=== PATIENT | male | born 1950 ===

== ENCOUNTER 2018-04-21 18:04 | Emergency (ER) | payer MEDICARE, OTHER ==
[~2018-04-21] VITALS: Ht 175.3 cm; Wt 83.9 kg
--- NOTE | 2018-04-21 19:34 | NUR ---
Patient discharged to home in stable conditon. Written and verbal after care instructions given. Patient verbalizes understanding of instructions. Pt left ER accompanied by daughter and power of deputy commonwealth's attorney. All belongings with pt. VSS. NAD noted.
[2018-04-21 19:35] VITALS: BP 127/74
== END 2018-04-21 19:36 | disposition home or self-care (01) ==
LOC: ER 18:07
DX: R07.89 Other chest pain (principal); G89.11 Acute pain due to trauma; V49.9XXA Car occupant (driver) (passenger) injured in unspecified traffic accident, initial encounter; Y93.89 Activity, other specified; Y92.410 Unspecified street and highway as the place of occurrence of the external cause; Y99.8 Other external cause status
CPT/HCPCS: 71045; 93005; A4663